=== PATIENT | female | born 1940 | race Caucasian/White ===

== ENCOUNTER 2019-11-08 07:06 | Day surgery (SDC) | payer OTHER, SELFPAY ==
[~2019-11-08] VITALS: Ht 160 cm; Wt 72.6 kg
[2019-11-08] MEDS ORDERED: CEFAZOLIN 1 GM IVPB PREMIX 50 ML IV ONE (08:00)
[2019-11-08] MEDS ORDERED: MEPERIDINE HCL/PF 25 MG/ML DISP.SYRIN IVP PRN (13:00)
[2019-11-08] MEDS ORDERED: LR 1,000 ML IV SCH (13:00)
[2019-11-08] MEDS ORDERED: MORPHINE 4 MG/ML INJ. SYRINGE IVP PRN (13:00)
[2019-11-08] MEDS ORDERED: HYDROmorphone 1 MG INJ. 1 MG/ML AMPUL IVP PRN ×2 (13:00→13:30)
[2019-11-08] MEDS ORDERED: ONDANSETRON HCL 4 MG/2 ML VIAL IVP PRN (13:00)
[2019-11-08] MEDS ORDERED: METOCLOPRAMIDE HCL 10 MG/2 ML VIAL IVP PRN (13:00)
[2019-11-08] MEDS ORDERED: D5/0.45 NS 1,000 ML IV SCH (13:16)
[2019-11-08] MEDS ORDERED: HYDROcodone/ACETAMIN 5-325 MG TAB (NORCO/ VICODIN) PO PRN ×2 (13:30)
[2019-11-08 14:58] VITALS: BP_SYST 155
== END 2019-11-08 15:35 | disposition home or self-care (01) ==
LOC: SDS 07:06 → SMU 07:07 → SDS 15:35
PROVIDERS: ATTEND Colon & Rectal Surgery
DX: D05.11 Intraductal carcinoma in situ of right breast (principal); I44.7 Left bundle-branch block, unspecified; E78.5 Hyperlipidemia, unspecified; E11.22 Type 2 diabetes mellitus with diabetic chronic kidney disease; I12.9 Hypertensive chronic kidney disease with stage 1 through stage 4 chronic kidney disease, or unspecified chronic kidney disease; E78.00 Pure hypercholesterolemia, unspecified; N18.3 Chronic kidney disease, stage 3 (moderate); E11.42 Type 2 diabetes mellitus with diabetic polyneuropathy; M85.80 Other specified disorders of bone density and structure, unspecified site; Z79.82 Long term (current) use of aspirin; Z79.84 Long term (current) use of oral hypoglycemic drugs; Z79.899 Other long term (current) drug therapy; Z20.828 Contact with and (suspected) exposure to other viral communicable diseases
CPT/HCPCS: 19281; 19301; 88305; 88307; J0690; J7120; U0003; 88341; 88342

== ENCOUNTER 2019-11-22 13:20 | Outpatient (CLI) | payer OTHER, SELFPAY ==
[~2019-11-22] VITALS: Ht 160 cm; Wt 70.3 kg
[2019-11-29] MEDS ORDERED: CEFAZOLIN SOD 1 GM in D5W 50 ML IV ONE (07:00)
== END 2019-11-22 14:00 | disposition home or self-care (01) ==
LOC: SLB 13:20 → EDSTATUS 11-29 10:08
DX: Z01.812 Encounter for preprocedural laboratory examination (principal); Z20.828 Contact with and (suspected) exposure to other viral communicable diseases; C50.919 Malignant neoplasm of unspecified site of unspecified female breast
CPT/HCPCS: J0690; J7060; U0003-CS

== ENCOUNTER 2019-12-27 07:00 | Day surgery (SDC) | payer OTHER, SELFPAY ==
[~2019-12-27] VITALS: Ht 157.5 cm; Wt 70.3 kg
[~2019-12-27 07:00] MED LIST: CEFAZOLIN SOD 1 GM in D5W 50 ML IV ONE
[2019-12-27] MEDS ORDERED: PROPOFOL 200MG/ 20ML VIAL (DIPRIVAN) IV ONE (09:08)
[2019-12-27] MEDS ORDERED: MIDAZOLAM HCL 5 MG/5 ML VIAL IVP ONE (09:08)
[2019-12-27] MEDS ORDERED: DEXAMETHASONE SOD PHOSPHATE 4 MG/ML VIAL IVP ONE (09:08)
[2019-12-27] MEDS ORDERED: SEVOFLURANE 15 MIN GAS INH ONE (09:08)
[2019-12-27] MEDS ORDERED: METOCLOPRAMIDE HCL 10 MG/2 ML VIAL IVP ONE (09:08)
[2019-12-27] MEDS ORDERED: ePHEDrine sulfate 50 MG/ML VIAL IVP ONE (09:08)
[2019-12-27] MEDS ORDERED: NS IRRIG SOLN 1000 ML IR ONE (09:08)
[2019-12-27] MEDS ORDERED: BUPIVACAINE /PF 0.25% 30 ML VIAL INJ ONE (09:08)
[2019-12-27] MEDS ORDERED: LIDOCAINE 1% 10 MG/ML, 20 ML MDV INJ ONE (09:08)
[2019-12-27] MEDS ORDERED: fentaNYL CITRATE/PF 100 MCG/2 ML AMP IVP ONE (09:08)
[2019-12-27] MEDS ORDERED: NS 1000 ML IV.SOLN IV ONE (09:08)
[2019-12-27] MEDS ORDERED: ONDANSETRON HCL 4 MG/2 ML VIAL IVP ONE (09:08)
[2019-12-27] MEDS ORDERED: D5/0.45 NS 1,000 ML IV SCH (10:09)
[2019-12-27] MEDS ORDERED: HYDROcodone/ACETAMIN 5-325 MG TAB (NORCO/ VICODIN) PO PRN (10:15)
[2019-12-27] MEDS ORDERED: NACL 0.9% 1,000 ML IV SCH (10:26)
[2019-12-27] MEDS ORDERED: HYDROmorphone 1 MG INJ. 1 MG/ML AMPUL IVP PRN ×2 (10:30)
[2019-12-27 11:10] VITALS: BP_SYST 104
== END 2019-12-27 12:05 | disposition home or self-care (01) ==
LOC: SMU 07:00 → SDS 07:00 → EDSTATUS 08:30 → SDS 12:05
PROVIDERS: ATTEND Colon & Rectal Surgery
DX: C50.911 Malignant neoplasm of unspecified site of right female breast (principal); N64.89 Other specified disorders of breast; Z20.828 Contact with and (suspected) exposure to other viral communicable diseases; E11.319 Type 2 diabetes mellitus with unspecified diabetic retinopathy without macular edema; K21.9 Gastro-esophageal reflux disease without esophagitis; E11.22 Type 2 diabetes mellitus with diabetic chronic kidney disease; I12.9 Hypertensive chronic kidney disease with stage 1 through stage 4 chronic kidney disease, or unspecified chronic kidney disease; N18.30 Chronic kidney disease, stage 3 unspecified; E11.40 Type 2 diabetes mellitus with diabetic neuropathy, unspecified; E78.00 Pure hypercholesterolemia, unspecified; M85.80 Other specified disorders of bone density and structure, unspecified site; Z90.710 Acquired absence of both cervix and uterus; Z79.899 Other long term (current) drug therapy
CPT/HCPCS: 38525; 78195; 88307; 88333; 88342; A9541; J0690; J1100; J2001; J2250; J2405; J2704; J2765; J3010; J3490; J7030; J7060; J7120; U0003